=== PATIENT | female | born 1935 | race Caucasian/White ===

== ENCOUNTER 2016-09-02 08:16 | Inpatient (IN) ==
--- NOTE | 2016-09-02 08:24 | Emergency Department Note ---
Disposition Clinical Impression: Renal insufficiency Hypothermia Qualifiers: Encounter type: initial encounter Qualified Code(s): T68.XXXA - Hypothermia, initial encounter Dementia Qualifiers: Dementia type: unspecified type Dementia behavioral disturbance: without behavioral disturbance Qualified Code(s): F03.90 - Unspecified dementia without behavioral disturbance Disposition: Admitted As Inpatient Condition: Fair Time of Disposition: 10:37 General Adult HPI - General Stated complaint: FALL Time Seen by Provider: 09/02/16 08:17 Source: EMS Mode of arrival: EMS Limitations: altered mental status Nursing Notes Reviewed: Yes Vital Signs Reviewed: Yes - History of Present Illness HPI Narrative: Squad indicates that the patient was found on the front porch not clear she fell she is complaining of some low back pain. Patient according to the squad has had some increasing confusion. Niece states that this morning the patient could be found and others R blanket and pillow out on the front porch and he found her laying behind the swing. 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 Radiation: non-radiation Pain Severity: mild, moderate Quality: aching Consistency: constant Improves with: nothing Worsens with: movement Associated symptoms: Reports: denies other symptoms - Related Data Home Medications Medication Instructions Recorded Confirmed No Known Home Drugs 09/02/16 09/02/16 Allergies Allergy/AdvReac Type Severity Reaction Status Date / Time No Known Allergies Allergy Verified 09/02/16 08:21 Limitations: ROS unobtainable due to patients medical condition Physical Exam - General Limitations: altered mental status General appearance: alert, in no apparent distress - Head Head exam: atraumatic, normocephalic, normal inspection - Eye Eye exam: Present: normal appearance, PERRL, EOMI - ENT ENT exam: normal exam, normal oropharynx, mucous membranes moist - Neck Neck exam: Present: normal inspection, full ROM, trachea midline - Chest Chest inspection: Present: normal inspection, symmetric chest wall rise - Respiratory Respiratory exam: Present: normal lung sounds bilaterally - Cardiovascular Cardiovascular exam: Present: regular rate, normal rhythm, normal heart sounds - Abdominal Exam Abdominal exam: Present: soft, Non-Tender. Absent: tenderness, distention, guarding, rebound, rigidity - Extremities Exam Extremities exam: Present: normal inspection, full ROM. Absent: tenderness, pedal edema - Expanded Lower Extremity Exam Neurovascular/Tendon exam: Absent: motor deficit, sensory deficit, tendon deficit Gait: not tested/not observed - Back Exam Back exam: Present: normal inspection, full ROM. Absent: tenderness - Neurological Exam Neurological exam: Present: alert - Expanded Neurological Exam Patient oriented to: Absent: person, place, time Speech: Present: fluid speech Motor strength - LUE: 5/5 Motor strength - RUE: 5/5 Motor strength - LLE: 5/5 Motor strength - RLE: 5/5 - Psychiatric Psychiatric exam: Present: normal affect, normal mood - Skin Skin exam: Present: warm, dry, intact, normal color Course - Consultations Consultation #1: I discussed the case with , admit to ICU. Time: 10:31 Consultation #2: Discussed with Dr. Walsh, admit to ICU Time: 10:35 Consultation #3: Dr. Walsh discussed the case with the hospitalist after evaluating the patient and felt this patient could go to the floor not the ICU. I spoke to bed management to make those arrangements. Time: 11:47 Vital Signs Temperature 91.1 F L 09/02/16 08:17 Pulse Rate 97 09/02/16 08:17 Respiratory Rate 18 09/02/16 08:17 Blood Pressure 140/94 09/02/16 08:17 O2 Sat by Pulse Oximetry 98 09/02/16 08:17 Temperature 97.5 F L 09/02/16 11:42 Pulse Rate 110 09/02/16 11:42 Respiratory Rate 18 09/02/16 11:42 Blood Pressure 106/57 09/02/16 11:42 O2 Sat by Pulse Oximetry 98 09/02/16 11:42 Oxygen Delivery Oxygen Delivery Room Air Medical Decision Making - Lab Data Lab results reviewed: Yes I reviewed the patient's lab results. Result diagrams: 09/02/16 08:34 09/02/16 08:34 Lab Results 09/02/16 09/02/16 09/02/16 Range/Units 08:34 08:34 08:34 WBC (4.3-11.1) K/mcL RBC (3.82-4.97) M/mcL Hgb (11.5-15.4) g/dL Hct (35.3-44.9) % MCV (83.0-100.0) fL MCH (28.0-33.3) pg MCHC (31.6-35.5) g/dL RDW (11.5-14.5) % Plt Count (140-400) K/mcL MPV (9.4-12.4) fL Immature Gran % (0-4) % Seg Neutrophils % % Lymphocytes % % Monocytes % % Eosinophils % % Basophils % % Neutrophils # (1.6-8.9) K/mcL Lymphocytes # (0.6-4.6) K/mcL Monocytes # (0.0-1.3) K/mcL Eosinophils # (0.0-0.6) K/mcL Basophils # (0.0-0.2) K/mcL PT 15.0 H (9.4-12.1) Seconds INR 1.4 APTT 33.7 (26.0-36.0) Seconds Sodium (136-145) mEq/L Potassium (3.5-4.5) mEq/L Chloride (98-109) mEq/L Carbon Dioxide (19-29) mEq/L BUN (7-20) mg/dL Creatinine (0.57-1.11) mg/dL Est GFR ( Amer) (> 60) Est GFR (Non-Af Amer) (> 60) BUN/Creatinine Ratio (6-26) Glucose (70-99) mg/dL Calculated Osmolality (280-300) Calcium (8.6-10.8) mg/dL Creatine Kinase 540 H (29-168) Units/L Troponin I (0-0.03) ng/mL B-Natriuretic Peptide 99 (0-100) pg/mL Urine Color (Yellow) Urine Clarity (Clear) Urine pH (5.0-8.0) pH Units Ur Specific [place] (1.010-1.025) Urine Protein (Neg-Trace) mg/dL Urine Glucose (UA) (Normal) mg/dL Urine Ketones (Negative) mg/dL Urine Blood (Negative) Urine Nitrite (Negative) Urine Bilirubin (Negative) Urine Urobilinogen (Normal) mg/dL Ur Leukocyte Esterase (Negative) Urine Microscopic RBC (0-3) per hpf Urine Microscopic WBC (0-3) per hpf Ur Squamous Epith Cells (None-Few) per lpf Urine Bacteria (None-Few) per hpf Hyaline Casts (None-Few) per lpf Ur Culture Indicated? (NO) 03/19/17 03/19/17 03/19/17 Range/Units 08:34 08:34 08:34 WBC 15.8 H (4.3-11.1) K/mcL RBC 5.02 H (3.82-4.97) M/mcL Hgb 13.9 (11.5-15.4) g/dL Hct 44.2 (35.3-44.9) % MCV 88.0 (83.0-100.0) fL MCH 27.7 L (28.0-33.3) pg MCHC 31.4 L (31.6-35.5) g/dL RDW 13.1 (11.5-14.5) % Plt Count 216 (140-400) K/mcL MPV 10.5 (9.4-12.4) fL Immature Gran % 0.4 (0-4) % Seg Neutrophils % 88.6 % Lymphocytes % 4.1 % Monocytes % 6.5 % Eosinophils % 0.0 % Basophils % 0.4 % Neutrophils # 14.0 H (1.6-8.9) K/mcL Lymphocytes # 0.6 (0.6-4.6) K/mcL Monocytes # 1.0 (0.0-1.3) K/mcL Eosinophils # 0.0 (0.0-0.6) K/mcL Basophils # 0.1 (0.0-0.2) K/mcL PT (9.4-12.1) Seconds INR APTT (26.0-36.0) Seconds Sodium 137 (136-145) mEq/L Potassium 5.0 H (3.5-4.5) mEq/L Chloride 99 (98-109) mEq/L Carbon Dioxide 20 (19-29) mEq/L BUN 25 H (7-20) mg/dL Creatinine 1.21 H (0.57-1.11) mg/dL Est GFR ( Amer) 52 L (> 60) Est GFR (Non-Af Amer) 43 L (> 60) BUN/Creatinine Ratio 21 (6-26) Glucose 154 H (70-99) mg/dL Calculated Osmolality 291 (280-300) Calcium 9.9 (8.6-10.8) mg/dL Creatine Kinase (29-168) Units/L Troponin I 0.02 (0-0.03) ng/mL B-Natriuretic Peptide (0-100) pg/mL Urine Color (Yellow) Urine Clarity (Clear) Urine pH (5.0-8.0) pH Units Ur Specific [place] (1.010-1.025) Urine Protein (Neg-Trace) mg/dL Urine Glucose (UA) (Normal) mg/dL Urine Ketones (Negative) mg/dL Urine Blood (Negative) Urine Nitrite (Negative) Urine Bilirubin (Negative) Urine Urobilinogen (Normal) mg/dL Ur Leukocyte Esterase (Negative) Urine Microscopic RBC (0-3) per hpf Urine Microscopic WBC (0-3) per hpf Ur Squamous Epith Cells (None-Few) per lpf Urine Bacteria (None-Few) per hpf Hyaline Casts (None-Few) per lpf Ur Culture Indicated? (NO) 09/02/16 Range/Units 09:30 WBC (4.3-11.1) K/mcL RBC (3.82-4.97) M/mcL Hgb (11.5-15.4) g/dL Hct (35.3-44.9) % MCV (83.0-100.0) fL MCH (28.0-33.3) pg MCHC (31.6-35.5) g/dL RDW (11.5-14.5) % Plt Count (140-400) K/mcL MPV (9.4-12.4) fL Immature Gran % (0-4) % Seg Neutrophils % % Lymphocytes % % Monocytes % % Eosinophils % % Basophils % % Neutrophils # (1.6-8.9) K/mcL Lymphocytes # (0.6-4.6) K/mcL Monocytes # (0.0-1.3) K/mcL Eosinophils # (0.0-0.6) K/mcL Basophils # (0.0-0.2) K/mcL PT (9.4-12.1) Seconds INR APTT (26.0-36.0) Seconds Sodium (136-145) mEq/L Potassium (3.5-4.5) mEq/L Chloride (98-109) mEq/L Carbon Dioxide (19-29) mEq/L BUN (7-20) mg/dL Creatinine (0.57-1.11) mg/dL Est GFR ( Amer) (> 60) Est GFR (Non-Af Amer) (> 60) BUN/Creatinine Ratio (6-26) Glucose (70-99) mg/dL Calculated Osmolality (280-300) Calcium (8.6-10.8) mg/dL Creatine Kinase (29-168) Units/L Troponin I (0-0.03) ng/mL B-Natriuretic Peptide (0-100) pg/mL Urine Color Yellow (Yellow) Urine Clarity Clear (Clear) Urine pH 5.0 (5.0-8.0) pH Units Ur Specific [place] 1.016 (1.010-1.025) Urine Protein Negative (Neg-Trace) mg/dL Urine Glucose (UA) Normal (Normal) mg/dL Urine Ketones 15 H (Negative) mg/dL Urine Blood Small H (Negative) Urine Nitrite Negative (Negative) Urine Bilirubin Small H (Negative) Urine Urobilinogen Normal (Normal) mg/dL Ur Leukocyte Esterase Negative (Negative) Urine Microscopic RBC 0-3 (0-3) per hpf Urine Microscopic WBC 0-3 (0-3) per hpf Ur Squamous Epith Cells Moderate H (None-Few) per lpf Urine Bacteria None Seen (None-Few) per hpf Hyaline Casts None Seen (None-Few) per lpf Ur Culture Indicated? NO (NO) - Radiology Data Radiology results reviewed: Yes I reviewed the patient's radiology results. Chest X-Ray 09/02/16 08:18 IMPRESSION: Minimal atelectasis right lower lobe. D/ / Chase Ricardo MD / Chase Ricardo MD Interpreting Provider: Chase Ricardo MD Cervical Spine CT 09/02/16 08:19 IMPRESSION: Normal alignment with multilevel degenerative changes resulting in canal and foraminal stenosis. No acute fracture. D/ / Derrek May MD / Derrek May MD Interpreting Provider: Derrek May MD Head CT 09/02/16 08:19 IMPRESSION: 1. No acute intracranial process identified. 2. Diffuse cerebral volume loss and chronic small vessel ischemic changes. D/ / Jorge Luis Alonso MD / Jorge Luis Alonso MD Interpreting Provider: Jorge Luis Alonso MD Lumbar Spine CT 09/02/16 08:19 IMPRESSION: Multiple compression fractures at T7, T8, T9, T11, and L4. The appearance suggests remote compression fractures. There are however, no prior studies to confirm these are chronic. If the patient has pain referable to these locations, consider MRI to confirm the suspected chronic nature of these fractures. D/ / 09/02/2016 10:05:47 Jorge Luis Alonso MD / dilip Interpreting Provider: Jorge Luis Alonso MD Pelvis CT 09/02/16 08:19 IMPRESSION: 1. No acute osseous abnormality 2. Osteopenia 3. Moderate degenerative changes are present involving the bilateral hips, bilateral SI joints, and pubic symphysis D/ / Papo Sauer MD / Papo Sauer MD Interpreting Provider: Papo Sauer MD Thoracic Spine CT 09/02/16 08:19 IMPRESSION: Multiple compression fractures at T7, T8, T9, T11, and L4. The appearance suggests remote compression fractures. There are however, no prior studies to confirm these are chronic. If the patient has pain referable to these locations, consider MRI to confirm the suspected chronic nature of these fractures. D/ /02/2016 10:05:47 Jorge Luis Alonso MD / dilip Interpreting Provider: Jorge Luis Alonso MD - EKG Data EKG #1 EKG shows normal: sinus rhythm Rate: normal Rhythm: NSR [place]/QRS: LAHB/LAFB Interpretation: no acute changes Critical Care Time Critical Care Time: Yes Total Critical Care Time: 30 Attestation: The high probability of a clinically significant, sudden or life threatening deterioration of the [cardiac] system(s) required my full and direct attention, intervention and personal management. The aggregate critical care time was [30] minutes. This time is in addition to time spent performing reported procedures but includes the following: [x] Data Review and interpretation [x] Patient assessment and monitoring of vital signs [x] Documentation [x] Medication orders and management
[2016-09-02 08:42] LABS: Basophils # 0.1 K/mcL (0.0-0.2); Basophils % 0.4 %; Hematocrit 44.2 % (35.3-44.9); Hemoglobin 13.9 g/dL (11.5-15.4); Immature Granulocytes % 0.4 % (0-4); Lymphocytes # 0.6 K/mcL (0.6-4.6); Lymphocytes % 4.1 %; Mean Corpuscular HGB Conc 31.4 g/dL (31.6-35.5); Mean Corpuscular Hemoglobin 27.7 pg (28.0-33.3); Mean Platelet Volume 10.5 fL (9.4-12.4); Monocytes % 6.5 %; Platelet Count 216 K/mcL (140-400); Red Blood Count 5.02 M/mcL (3.82-4.97); Red Cell Distribution Width 13.1 % (11.5-14.5); Segmented Neutrophils % 88.6 %
[2016-09-02 08:50] LABS: INR 1.4
[2016-09-02 08:53] LABS: Activated Partial Thrombo Time 33.7 Seconds (26.0-36.0)
[2016-09-02 08:55] LABS: Calcium 9.9 mg/dL (8.6-10.8)
[2016-09-02] MEDS ORDERED: Albuterol 2.5 MG/3 ML NEBULIZER IH ONE (09:32)
[2016-09-02] MEDS ORDERED: *HR* Dextrose 50 % in Water (Syg) 50 ML SYRINGE IVP ONE (09:34)
[2016-09-02] MEDS ORDERED: Insulin Human Regular 10 UNIT in 0.9 % Sodium Chloride 10 ML IV ONE (09:34)
[2016-09-02 09:39] LABS: Bilirubin,Urine Small (Negative); Blood,Urine Small (Negative); Clarity,Urine Clear (Clear); Color,Urine Yellow (Yellow); Glucose,Urine (UA) Normal (Normal); Ketones,Urine 15 mg/dL (Negative); Leukocyte Esterase,Urine Negative (Negative); Nitrite,Urine Negative (Negative); Protein,Urine Negative (Neg-Trace); Specific Gravity,Urine 1.016 (1.010-1.025); Urobilinogen,Urine Normal (Normal)
[2016-09-02 09:41] LABS: Bacteria,Urine None Seen per hpf (None-Few); Hyaline Casts,Urine None Seen per lpf (None-Few); RBC,Urine 0-3 per hpf (0-3); Squamous Epithelial Cell,Urine Moderate per lpf (None-Few); WBC,Urine 0-3 per hpf (0-3)
[2016-09-02] MEDS ORDERED: Acetaminophen 325 MG TABLET PO PRN (12:34)
[2016-09-02] MEDS ORDERED: Naloxone 0.4 MG/ML INJ IVP PRN (12:34)
--- NOTE | 2016-09-02 14:12 | Internal Med History&Physical ---
Date of Encounter: 09/02/16 Time of Encounter: 13:50 Assessment and Plan (1) Hypothermia Current visit: Yes Status: Acute Patient presented with hypothermia with temperature of 91.1F. this is now improving. Will monitor heart rate with telemetry and also monitor electrolytes. Due to exposure. Will observe patient in the hospital. Monitor vital signs closely Qualifiers: Encounter type: initial encounter Qualified Code(s): T68.XXXA - Hypothermia , initial encounter (2) Fall Current visit: Yes Status: Acute Patient was found on the floor of the front porch. Likely after fall. Patient does not recollect the events prior to the fall. We will consult physical therapy for evaluation and also social media assistant to see if patient will need any help with discharge planning. Qualifiers: Encounter type: initial encounter Qualified Code(s): W19.XXXA - Unspecified fall, initial encounter (3) SIRS (systemic inflammatory response syndrome) Current visit: Yes Status: Acute Patient has tachycardia and leukocytosis. No source clicks of infection. Hold off on starting antibiotics for now. Will hydrate intravenously. (4) Renal insufficiency Current visit: Yes Status: Acute Acute kidney injury. Unknown baseline renal function. Likely from dehydration. Will hydrate and reassess. (5) Dementia Current visit: Yes Status: Chronic Patient appears to be having underlying dementia. At risk for delirium. We will monitor closely. park worker consult for discharge planning. Qualifiers: Dementia type: unspecified type Dementia behavioral disturbance: without behavioral disturbance Qualified Code(s): F03.90 - Unspecified dementia without behavioral disturbance Internal Medicine - H&P: HPI Chief complaint: Fall Admitted From: Emergency Dept Plans for Post Hospital Care: Transfer [facility] History of present illness: Ms. Stokes is a 81 year old female who was brought in by EMS after being found on the front porch by her family members. Patient appears to be having some underlying dementia and is unable to provide much history. History has been obtained through review of ED records. Patient however denies any pain. Denies any shortness of breath. No nausea or vomiting. In the ER, the patient was noted to be hypothermic. She has confusion on presentation but this has been improving throughout her ER stay. Presently she seems to recognize her surroundings but unable to relate events that occurred. She says she lives with her sister but then says that she only sees her every other week. Past Med Surg Social Fam HX - Past Medical History Medical history: dementia (possible) - Social History Smoking Status: Never smoker Smokeless Tobacco Status: No Alcohol use: none Drug use: none - Additional Family History Additional family history: Unable to review at this time given patient's dementia Internal Medicine - H&P: Meds No Known Home Drugs 09/02/16 [History] Allergies No Known Allergies Allergy (Verified 09/02/16 08:21) ROS unobtainable: due to mental status All Systems PM: A 10-system review of systems was performed and is negative for pertinent findings except as documented above in the HPI. Review of systems: Obtained but doubt accuracy given the patient's possible dementia. - Constitutional Constitutional: falls - EENT Eyes: no change in vision, no discharge, no pain, no photophobia Ears: no ear discharge, no ear pain, no tinnitus Nose, mouth and throat: no dysphagia, no nasal discharge, no neck pain, no sore throat - Cardiovascular Cardiovascular ROS IM: no chest pain, no diaphoresis, no dyspnea, no lightheadedness, no palpitations, no syncope - Respiratory Respiratory: no cough, no dyspnea, no wheezing, no excessive phlegm production - Gastrointestinal Gastrointestinal: no abdominal pain, no diarrhea, no hematemesis, no hematochezia, no melena, no nausea, no vomiting - Genitourinary Genitourinary: no change in urinary stream, no dysuria, no flank pain, no hematuria - Musculoskeletal Musculoskeletal ROS IM: no numbness, no tingling - Integumentary Integumentary IM: no rash, no unusual bruising - Neurological Neurological ROS: no confusion, no convulsions, no focal weakness, no numbness, no tingling, no tremor(s) - Hematologic/Lymphatic Hematologic/Lymphatic: no easy bruising - Constitutional Vitals: Temp Pulse Resp BP Pulse Ox 97.5 F L 118 18 112/59 97 09/02/16 13:03 09/02/16 13:03 09/02/16 13:03 09/02/16 13:03 09/02/16 13:15 General appearance: Present: cooperative, A&O X 1, disheveled, answers questions appropriately - Head Head exam: Present: atraumatic, normocephalic - Eye Eye exam: Present: EOMI, PERRL - ENT Additional comments: Poor dentition - Neck Neck exam general surgery: Present: supple, trachea midline. Absent: lymphadenopathy - Respiratory Respiratory exam: Present: CTAB. Absent: accessory muscle use, rales, rhonchi, wheezes - Cardiovascular Cardiovascular exam: Present: RRR, +S1, +S2, systolic murmur, tachycardia. Absent: diastolic murmur, gallop, rubs - GI/Abdominal GI/Abdominal exam: Present: normal bowel sounds, soft, no peritoneal signs. Absent: distended, tenderness - Extremities Exam Extremities exam: Present: warm, radial pulses palpable and symetrical. Absent : calf tenderness, cyanotic, pedal edema - Neurological Exam Neurological exam: Present: alert, CN II-XII intact, no focal deficits, strengths equal and symetr throughout. Absent: facial droop, speech deficit - Skin Skin exam: Present: dry, intact Internal Med - H&P Results - Labs CBC & Chem 7: 09/02/16 08:34 09/02/16 08:34 - EKG Data -: EKG Interpreted by Myself EKG shows normal: sinus rhythm Rate: tachycardia - Impressions Impressions Chest X-Ray 09/02/16 08:18 IMPRESSION: Minimal atelectasis right lower lobe. D/ / Chase Ricardo MD / Chase Ricardo MD Interpreting Provider: Chase Ricardo MD Cervical Spine CT 09/02/16 08:19 IMPRESSION: Normal alignment with multilevel degenerative changes resulting in canal and foraminal stenosis. No acute fracture. D/ / 09/02/2016 10:11:40 Derrek May MD / bcarter Interpreting Provider: Derrek May MD Head CT 09/02/16 08:19 IMPRESSION: 1. No acute intracranial process identified. 2. Diffuse cerebral volume loss and chronic small vessel ischemic changes. D/ / Jorge Luis Alonso MD / Jorge Luis Alonso MD Interpreting Provider: Jorge Luis Alonso MD Lumbar Spine CT 09/02/16 08:19 IMPRESSION: Multiple compression fractures at T7, T8, T9, T11, and L4. The appearance suggests remote compression fractures. There are however, no prior studies to confirm these are chronic. If the patient has pain referable to these locations, consider MRI to confirm the suspected chronic nature of these fractures. D/ / 09/02/2016 10:05:47 Jorge Luis Alonso MD / [employer] Interpreting Provider: Jorge Luis Alonso MD Pelvis CT 09/02/16 08:19 IMPRESSION: 1. No acute osseous abnormality. 2. Osteopenia. 3. Moderate degenerative changes are present involving the bilateral hips, bilateral SI joints, and pubic symphysis. D/ / 09/02/2016 10:14:15 Papo Sauer MD / dilip Interpreting Provider: Papo Sauer MD Thoracic Spine CT 09/02/16 08:19 IMPRESSION: Multiple compression fractures at T7, T8, T9, T11, and L4. The appearance suggests remote compression fractures. There are however, no prior studies to confirm these are chronic. If the patient has pain referable to these locations, consider MRI to confirm the suspected chronic nature of these fractures. D/ / 09/02/2016 10:05:47 Jorge Luis Alonso MD / [employer] Interpreting Provider: Jorge Luis Alonso MD - Attending Attestation This document has been at least partially created by [employer] recognition technology by Dr. Hickey. Errors in grammar, wording or other phrases may exist. If errors are found after the documentation is signed, they will be addressed individually in the addendum section of this document when appropriate.
[2016-09-02 14:28] LABS: BUN/Creatinine Ratio 22 (6-26); Blood Urea Nitrogen 23 mg/dL (7-20); Calcium 9.1 mg/dL (8.6-10.8); Carbon Dioxide 18 mEq/L (19-29); Chloride 106 mEq/L (98-109); Glucose 57 mg/dL (70-99); Magnesium 1.7 mg/dL (1.6-2.6); Osmolality,Calculated 289 (280-300); Phosphorous 2.1 mg/dL (2.3-4.7); Potassium 4.1 mEq/L (3.5-4.5); Sodium 139 mEq/L (136-145); eGFR For African Americans > 60 (> 60); eGFR For Non-African Americans 51 (> 60)
[2016-09-02] MEDS: 0.9 % Sodium Chloride 1,000 ML IVC SCH (14:56)
[2016-09-03] MEDS: 0.9 % Sodium Chloride 1,000 ML IVC SCH (02:10)
[2016-09-03 04:54] LABS: Basophils % 0.4 %; Eosinophils % 0.1 %; Hematocrit 35.9 % (35.3-44.9); Immature Granulocytes % 0.5 % (0-4); Lymphocytes # 1.3 K/mcL (0.6-4.6); Lymphocytes % 12.3 %; Mean Corpuscular HGB Conc 30.9 g/dL (31.6-35.5); Mean Corpuscular Hemoglobin 27.1 pg (28.0-33.3); Mean Corpuscular Volume 87.6 fL (83.0-100.0); Mean Platelet Volume 10.3 fL (9.4-12.4); Monocytes % 9.4 %; Platelet Count 168 K/mcL (140-400); Red Cell Distribution Width 13.2 % (11.5-14.5); Segmented Neutrophils % 77.3 %
[2016-09-03 05:28] LABS: Hemoglobin 11.1 g/dL (11.5-15.4)
--- NOTE | 2016-09-03 06:26 | Electrocardiograph Report ---
[place] Member Desk [facility] Test Date: 2016-09-02 Pat Name: Namita Stokes Department: [id number] Room: 2A12 Gender: F Fire Support Man: : 1935 Requested By: Franklin Weaver Order Number: [id number] Reading MD: Nam Victor DO Measurements Intervals [place] Rate: 93 P: 89 MO: 192 QRS: -78 QRSD: 105 T: 88 QT: 378 QTc: 429 Interpretive Statements SINUS RHYTHM LEFT ANTERIOR FASCICULAR BLOCK POSSIBLE LATERAL MYOCARDIAL INFARCTION, OF INDETERMINATE AGE Electronically Signed On 09-03-2016 6:24:34 EDT by Nam Victor DO
--- NOTE | 2016-09-03 08:59 | Internal Med Progress Note ---
<Sara Mcnulty - Last Filed: 09/03/16 08:56> Date of Encounter: 09/03/16 Time of Encounter: 08:57 - Assessment and plan (1) Fall Current Visit: Yes Status: Acute Assessment and plan: Patient was found down outside at home, unclear etiology of fall. CT significant for throacic compression fractures which appear to be old, patient has no pain on palpation of thoracic spine. Given hypothermia, questionable fall and condition of patient, social work has been consulted Suspect that patient may need placement. Qualifiers: Encounter type: subsequent encounter Qualified Code(s): W19.XXXD - Unspecified fall, subsequent encounter (2) Dementia Current Visit: Yes Status: Chronic Assessment and plan: Chronic Patient only oriented to self. Per nursing notes, significant concerns for safety at home, possible need for APS involvement Social work consulted, will follow. Patient may need placement, is unsafe to discharge at this time. Qualifiers: Dementia type: unspecified type Dementia behavioral disturbance: without behavioral disturbance Qualified Code(s): F03.90 - Unspecified dementia without behavioral disturbance (3) Hypothermia Current Visit: Yes Status: Resolved Assessment and plan: Resolved. Patient was found outside for unknown period of time,w as hypothermic on arrival. Patient had bear hugger, warmed sufficiently. Currently not needing bear hugger. Patient is maintaining temperature and is normothermic. Given social concerns, social work consulted as previously mentioned. Qualifiers: Encounter type: subsequent encounter Qualified Code(s): T68.XXXD - Hypothermia, subsequent encounter (4) SIRS (systemic inflammatory response syndrome) Current Visit: Yes Status: Resolved Assessment and plan: Resolved. Patient was hypothermic and had leukocytosis on arrival. Urine negative for any possible source of infection, chest x-ray negative. No antibiotics given. WBC normalized to 10.3 after administration of fluids, suspect initial elevation due to volume contraction secondary to dehydration. - Subjective Interval history: Patient seen and examined. Per review of nursing notes, there is significant social concerns due to condition of patient when she arrived on floor, fact patient was hypothermic and due to inappropriate answers from sister who lives with patient at home. Plan is to consult social work, nursing concern for possible APS involvement. Patient herself has no acute complaints this morning. States that the TV remote is her sisters and that the athletic monitor box is hers. Patient states that she does not eat breakfast and only has milk, breakfast tray in room is uneaten. - Constitutional Vitals: Temp Pulse Resp BP Pulse Ox 97.6 F 99 16 132/63 97 09/03/16 08:46 09/03/16 08:46 09/03/16 08:46 09/03/16 08:46 09/03/16 08:46 General appearance: Present: cooperative, A&O X 1 (oriented to self only ), no acute distress - Head Head exam: Present: atraumatic - Eye Eye exam: Present: normal appearance - ENT ENT exam: Present: mucous membranes moist Additional comments: tooth hanging from mouth - Respiratory Respiratory exam: Present: CTAB. Absent: rales, rhonchi, wheezes - Cardiovascular Cardiovascular exam: Present: RRR, +S1, +S2. Absent: clicks, diastolic murmur, gallop, rubs, systolic murmur - GI/Abdominal GI/Abdominal exam: Present: normal bowel sounds, soft, no peritoneal signs. Absent: distended, guarding, rebound, rigid, tenderness - Extremities Exam Extremities exam: Present: normal capillary refill. Absent: pedal edema Additional comments: chronic rubor bilateral lower extremities Internal Medicine: Result - Labs CBC & Chem 7: 09/03/16 04:29 09/02/16 13:59 Labs: Short CBC 09/03/16 Range/Units 04:29 WBC 10.3 (4.3-11.1) K/mcL Hgb 11.1 L D (11.5-15.4) g/dL Hct 35.9 (35.3-44.9) % Plt Count 168 (140-400) K/mcL Neutrophils # 8.0 (1.6-8.9) K/mcL BMP 09/02/16 13:59 Sodium 139 Potassium 4.1 Chloride 106 Carbon Dioxide 18 L BUN 23 H Creatinine 1.04 Glucose 57 L Calcium 9.1 - ABG Interpretation ABG results: PT/INR, D-dimer PT 15.0 Seconds (9.4-12.1) H 09/02/16 08:34 Consult Discharge Plan - Plan Referrals: NO,PCP [Primary Care Provider] - <Abhishek Hauser - Last Filed: 09/03/16 16:02> - Assessment and plan (1) Rhabdomyolysis Current Visit: Yes Status: Acute Assessment and plan: Very mild situation - responding to fluids. Recheck CPK. Qualifiers: Rhabdomyolysis type: non-traumatic Qualified Code(s): M62.82 - Rhabdomyolysis (2) Hypothermia Current Visit: Yes Status: Resolved Qualifiers: Encounter type: subsequent encounter Qualified Code(s): T68.XXXD - Hypothermia, subsequent encounter (3) Renal insufficiency Current Visit: Yes Status: Acute (4) Fall Current Visit: Yes Status: Acute Qualifiers: Encounter type: subsequent encounter Qualified Code(s): W19.XXXD - Unspecified fall, subsequent encounter (5) Dementia Current Visit: Yes Status: Chronic Qualifiers: Dementia type: unspecified type Dementia behavioral disturbance: without behavioral disturbance Qualified Code(s): F03.90 - Unspecified dementia without behavioral disturbance - Constitutional Vitals: Temp Pulse Resp BP Pulse Ox 97.6 F 102 16 129/69 96 09/03/16 11:00 09/03/16 11:00 09/03/16 11:00 09/03/16 11:00 09/03/16 11:00 Internal Medicine: Result - Labs CBC & Chem 7: 09/03/16 04:29 09/02/16 13:59 Labs: Short CBC 09/03/16 Range/Units 04:29 WBC 10.3 (4.3-11.1) K/mcL Hgb 11.1 L D (11.5-15.4) g/dL Hct 35.9 (35.3-44.9) % Plt Count 168 (140-400) K/mcL Neutrophils # 8.0 (1.6-8.9) K/mcL - ABG Interpretation ABG results: PT/INR, D-dimer PT 15.0 Seconds (9.4-12.1) H 09/02/16 08:34 - Attending Attestation I examined this patient and my medical decision-making was reviewed with the Resident Physician on 09/03/16. I agree with the documented findings, disposition and treatment plan as described except to the extent set forth below. Ms. Stokes is currently in observation for hypothermia and fall. She is moderate risk due to potential for worsening renal and neurologic status. Ms. Stokes denies complaints. She is oriented only to person. Says her sister will be here to get her today if she is going home. Denies pain. No SOB. Not hungry. Exam Alert. Comfortable Heart reg Lungs no wheeze Legs with chronic venous stasis changes. Abd soft I/P 1. Hypothermia - resolved 2. Mild rhabdomyolysis - initial CPK 540 (today's pending)with mild DELIA. IV fluids have been given 3. Dehydration - IV fluids. Further diagnoses and plan as above. Social work consulted for assistance. Pt lives with her sister and not sure of safety of living environment.
[2016-09-04 09:21] LABS: Creatine Kinase 788 Units/L (29-168)
--- NOTE | 2016-09-04 10:06 | Internal Med Progress Note ---
<Sara Mcnulty - Last Filed: 09/04/16 10:17> Date of Encounter: 09/04/16 Time of Encounter: 09:41 - Assessment and plan (1) Fall Current Visit: Yes Status: Acute Assessment and plan: Patient was found down outside at home, unclear if fell or if fell asleep outside. CT significant for thoracic compression fractures which appear to be old, patient has no pain on palpation of thoracic spine. Social work consult, APS consulted due to concerns over condition and circumstances of how patient was found. Social work has also made attempt to contact sister to find other family members who may be able to help in decision making. PT and OT consulted, do not feel that patient is a candidate for skilled services due to inability to follow one step commands. Both feel that patient would benefit from placement in extended care facility with 24 hour supervision for her safety. Qualifiers: Encounter type: subsequent encounter Qualified Code(s): W19.XXXD - Unspecified fall, subsequent encounter (2) Dementia Current Visit: Yes Status: Chronic Assessment and plan: Chronic Patient only oriented to self. Social work consulted, has consulted APS as previously mentioned. Has attempted to contact sister for additional relatives for decision making as previously mentioned. As previously mentioned, PT and OT recommend [facility] ECF placement with 24 hour supervision for patient safety, do not believe patient would be a candidate for skilled rehab due to inability to follow one step commands. Will continue to follow. Qualifiers: Dementia type: unspecified type Dementia behavioral disturbance: without behavioral disturbance Qualified Code(s): F03.90 - Unspecified dementia without behavioral disturbance (3) Rhabdomyolysis Current Visit: Yes Status: Acute Assessment and plan: Mild rhabodomyolysis, likely secondary from being immobile for unknown amount of time prior to arrival. CK on admission 540, increased to 788 today. Will continue to monitor. Qualifiers: Rhabdomyolysis type: non-traumatic Qualified Code(s): M62.82 - Rhabdomyolysis - Subjective Interval history: Patient seen and examined. Due to patient's mental status, information for note was gathered from chart review. Per review of social work note, the manager social media did contact APS to file a report concerning patient's status and concerns over her well being. Social work also attempted to contact sister to obtain any information for additional family or relatives in the area. Per review of PT and OT notes, they do not feel that the patient qualifies for skilled services due to her inability to follow basic one step commands. Notes are concerned for patient safety and are recommending placement in a longterm care facility which has 24 hour supervision. Per nursing notes, patient had increasing confusion overnight and staff was unable to reorient her. Patient herself has no complaints this morning. - Constitutional Vitals: Temp Pulse Resp BP Pulse Ox 98.6 F 107 24 129/65 95 09/04/16 06:45 09/04/16 06:45 09/04/16 06:45 09/04/16 06:45 09/04/16 06:45 General appearance: Present: cooperative, A&O X 1 (oriented to self only ), no acute distress - Head Head exam: Present: atraumatic - ENT ENT exam: Present: mucous membranes moist, normal external ear exam Additional comments: Tooth protruding from left side of mouth - Respiratory Respiratory exam: Present: CTAB. Absent: rales, rhonchi, wheezes - Cardiovascular Cardiovascular exam: Present: +S1, +S2, tachycardia. Absent: clicks, diastolic murmur, rubs, systolic murmur - GI/Abdominal GI/Abdominal exam: Present: normal bowel sounds, soft. Absent: distended, guarding, rebound, tenderness - Extremities Exam Extremities exam: Present: normal capillary refill, warm. Absent: pedal edema Internal Medicine: Result - Labs CBC & Chem 7: 09/03/16 04:29 09/02/16 13:59 - ABG Interpretation ABG results: PT/INR, D-dimer PT 15.0 Seconds (9.4-12.1) H 09/02/16 08:34 Consult Discharge Plan - Plan Referrals: NO,PCP [Primary Care Provider] - <Abhishek Hauser - Last Filed: 09/04/16 16:38> - Assessment and plan (1) Rhabdomyolysis Current Visit: Yes Status: Acute Qualifiers: Rhabdomyolysis type: non-traumatic Qualified Code(s): M62.82 - Rhabdomyolysis (2) Hypothermia Current Visit: Yes Status: Resolved Qualifiers: Encounter type: subsequent encounter Qualified Code(s): T68.XXXD - Hypothermia, subsequent encounter (3) Fall Current Visit: Yes Status: Acute Qualifiers: Encounter type: subsequent encounter Qualified Code(s): W19.XXXD - Unspecified fall, subsequent encounter (4) Dementia Current Visit: Yes Status: Chronic Qualifiers: Dementia type: unspecified type Dementia behavioral disturbance: without behavioral disturbance Qualified Code(s): F03.90 - Unspecified dementia without behavioral disturbance (5) Renal insufficiency Current Visit: Yes Status: Resolved - Constitutional Vitals: Temp Pulse Resp BP Pulse Ox 98.8 F 113 20 134/73 95 09/04/16 16:07 09/04/16 16:07 09/04/16 16:07 09/04/16 16:07 09/04/16 16:07 Internal Medicine: Result - Labs CBC & Chem 7: 09/03/16 04:29 09/04/16 08:51 Labs: BMP 09/04/16 08:51 Sodium 138 Potassium 3.1 L D Chloride 107 Carbon Dioxide 20 BUN 10 D Creatinine 0.78 Glucose 88 Calcium 8.6 - ABG Interpretation ABG results: PT/INR, D-dimer PT 15.0 Seconds (9.4-12.1) H 09/02/16 08:34 - Attending Attestation I examined this patient and my medical decision-making was reviewed with the Resident Physician on 09/04/16. I agree with the documented findings, disposition and treatment plan as described except to the extent set forth below. Ms. Stokes is currently in observation due to acute rhabdomyolysis with DELIA. Ms. Stokes denies pain at this time. She says she is not hungry. Fluids changed to 1/2 NS with bicarb. No CP or SOB. Exam Alert. Comfortable Heart reg No wheeze Chronic stasis changes both legs I/P 1. Mild acute rhabdo - IV fluids given. Bicarb started. 2. Dementia Further diagnoses and plan as above. Working on social service issues - discharge planning.
[2016-09-04] MEDS ORDERED: Sodium Bicarbonate 50 MEQ in 0.45 % Sodium Chloride 1,000 ML IVC SCH (11:00)
[2016-09-04 11:12] LABS: BUN/Creatinine Ratio 13 (6-26); Calcium 8.6 mg/dL (8.6-10.8); Carbon Dioxide 20 mEq/L (19-29); Chloride 107 mEq/L (98-109); Glucose 88 mg/dL (70-99); Osmolality,Calculated 284 (280-300); Sodium 138 mEq/L (136-145); eGFR For African Americans > 60 (> 60); eGFR For Non-African Americans > 60 (> 60)
[2016-09-04 11:30] LABS: Blood Urea Nitrogen 10 mg/dL (7-20); Potassium 3.1 mEq/L (3.5-4.5)
--- NOTE | 2016-09-05 09:59 | Internal Med Progress Note ---
<Sara Mcnulty - Last Filed: 09/05/16 09:48> Date of Encounter: 09/05/16 Time of Encounter: 09:48 - Assessment and plan (1) Fall Current Visit: Yes Status: Acute Assessment and plan: Patient was found down outside at home, unclear if fell or if fell asleep outside. CT significant for thoracic compression fractures which appear to be old, patient has no pain on palpation of thoracic spine. Social work consult, APS report filed. PT and OT evaluation with recommendation of placement in extended care facility , do not believe patient woudl benefit from skilled placement as she is unable to follow one step commands. Due to pending APS investigation and determination of safe discharge, patient will remain in hospital until safe discharge plan and place can be determined. Qualifiers: Encounter type: subsequent encounter Qualified Code(s): W19.XXXD - Unspecified fall, subsequent encounter (2) Dementia Current Visit: Yes Status: Chronic Assessment and plan: Chronic Patient only oriented to self. Social work consulted, APS report filed. Sister and niece present yesterday, niece believes that sister is no longer able to safely care f or patieint at home. Niece is willing to be guardian ut does not have funds available to pursue guardianship. As previously mentioned, PT and OT recommend group home ECF placement with 24 hour supervision for patient safety, do not believe patient would be a candidate for skilled rehab due to inability to follow one step commands. Patient will remain in hospital until APS investigation complete and determination of safe discharge plan for patient can be determined. Qualifiers: Dementia type: unspecified type Dementia behavioral disturbance: without behavioral disturbance Qualified Code(s): F03.90 - Unspecified dementia without behavioral disturbance (3) Rhabdomyolysis Current Visit: Yes Status: Acute Assessment and plan: Mild rhabodomyolysis, likely secondary from being immobile for unknown amount of time prior to arrival. CK on admission 540, increased to 788. Patient received normal saline with amp bicarb yesterday. Qualifiers: Rhabdomyolysis type: non-traumatic Qualified Code(s): M62.82 - Rhabdomyolysis - Subjective Interval history: Patient seen and examined. Due to patient's mental status, information for note was gathered from chart review. Per review of social work note, the nursing home social worker did file an APS report. Niece was present yesterday in room with sister, niece would be willing to be guardian but may not have funds to do so. Previous evaluation by PT and OT with recommendation for placement in facility with 24 hour supervision, as they feel patient would not be a skilled rehab candidate as she is unable to follow one step commands. Patient again had breakfast tray in room which was uneaten. Patient states that she only eats one large meal per day at supper. Chart review indicates patient only ate 5% of her lunch yesterday. Patient herself has no complaints this morning. - Constitutional Vitals: Temp Pulse Resp BP Pulse Ox 98.8 F 110 20 139/69 95 09/05/16 06:59 09/05/16 06:59 09/05/16 06:59 09/05/16 06:59 09/05/16 06:59 General appearance: Present: cooperative, A&O X 1 (oriented to self only ), no acute distress - Head Head exam: Present: atraumatic, normocephalic - Eye Eye exam: Present: normal appearance - ENT ENT exam: Present: mucous membranes moist, normal external ear exam Additional comments: tooth protruding from mouth left of midline - Neck Neck exam general surgery: Present: supple, trachea midline - Respiratory Respiratory exam: Present: CTAB. Absent: rales, rhonchi, stridor, wheezes - Cardiovascular Cardiovascular exam: Present: +S1, +S2, tachycardia. Absent: clicks, diastolic murmur, gallop, rubs, systolic murmur - GI/Abdominal GI/Abdominal exam: Present: normal bowel sounds, soft. Absent: distended, guarding, rebound, rigid Internal Medicine: Result - Labs CBC & Chem 7: 09/03/16 04:29 09/04/16 08:51 - ABG Interpretation ABG results: PT/INR, D-dimer PT 15.0 Seconds (9.4-12.1) H 09/02/16 08:34 Consult Discharge Plan - Plan Referrals: NO,PCP [Primary Care Provider] - (patient will go likely to ecf) <Abhishek Hauser - Last Filed: 09/05/16 16:38> - Assessment and plan (1) Rhabdomyolysis Current Visit: Yes Status: Acute Qualifiers: Rhabdomyolysis type: non-traumatic Qualified Code(s): M62.82 - Rhabdomyolysis (2) Hypothermia Current Visit: Yes Status: Resolved Qualifiers: Encounter type: subsequent encounter Qualified Code(s): T68.XXXD - Hypothermia, subsequent encounter (3) Fall Current Visit: Yes Status: Acute Qualifiers: Encounter type: subsequent encounter Qualified Code(s): W19.XXXD - Unspecified fall, subsequent encounter (4) Dementia Current Visit: Yes Status: Chronic Qualifiers: Dementia type: unspecified type Dementia behavioral disturbance: without behavioral disturbance Qualified Code(s): F03.90 - Unspecified dementia without behavioral disturbance (5) Renal insufficiency Current Visit: Yes Status: Resolved (6) Hypokalemia Current Visit: Yes Status: Acute Assessment and plan: Recheck tomorrow and replace. - Constitutional Vitals: Temp Pulse Resp BP Pulse Ox 97.4 F L 107 18 135/79 95 09/05/16 15:16 09/05/16 15:16 09/05/16 15:16 09/05/16 15:16 09/05/16 15:16 Internal Medicine: Result - Labs CBC & Chem 7: 09/03/16 04:29 09/04/16 08:51 - ABG Interpretation ABG results: PT/INR, D-dimer PT 15.0 Seconds (9.4-12.1) H 09/02/16 08:34 - Attending Attestation I examined this patient and my medical decision-making was reviewed with the Resident Physician on 09/05/16. I agree with the documented findings, disposition and treatment plan as described except to the extent set forth below. Ms. Stokes is currently in observation for acute mild rhabdomyolysis due to fall. She is moderate risk due to potential for worsening renal neurologic status. Ms. Stokes says she is going home. Denies pain. No acute issues overnight. Working on d/c planning. APS involved. Exam Alert. Comfortable but restless and trying to remove catheter. Heart reg with S4 Lungs no wheeze Abd soft I/P 1. Mild acute rhabdo - recheck labs tomorrow. Has been receiving bicarb 2. Dementia 3. D/C planning - APS involved. Further diagnoses and plan as above.
[2016-09-06 07:23] LABS: Hematocrit 38.7 % (35.3-44.9); Hemoglobin 12.4 g/dL (11.5-15.4); Mean Corpuscular Hemoglobin 27.1 pg (28.0-33.3); Mean Corpuscular Volume 84.5 fL (83.0-100.0); Platelet Count 194 K/mcL (140-400); Red Blood Count 4.58 M/mcL (3.82-4.97); Red Cell Distribution Width 13.2 % (11.5-14.5)
[2016-09-06 07:24] LABS: Alanine Aminotransferase 24 Units/L (0-55); Albumin 2.6 g/dL (3.5-5.0); Albumin/Globulin Ratio 0.8 (1.1-2.2); Alkaline Phosphatase 56 Units/L (38-126); Aspartate Amino Transferase 34 Units/L (5-34); BUN/Creatinine Ratio 12 (6-26); Bilirubin,Total 0.9 mg/dL (0.2-1.2); Blood Urea Nitrogen 9 mg/dL (7-20); Calcium 8.4 mg/dL (8.6-10.8); Carbon Dioxide 20 mEq/L (19-29); Chloride 104 mEq/L (98-109); Creatine Kinase 387 Units/L (29-168); Globulin 3.4 g/dL (2.4-3.5); Glucose 94 mg/dL (70-99); Magnesium 1.5 mg/dL (1.6-2.6); Osmolality,Calculated 284 (280-300); Potassium 3.5 mEq/L (3.5-4.5); Sodium 138 mEq/L (136-145); eGFR For African Americans > 60 (> 60); eGFR For Non-African Americans > 60 (> 60)
--- NOTE | 2016-09-06 09:38 | Internal Med Progress Note ---
<Sara Mcnulty - Last Filed: 09/06/16 09:36> Date of Encounter: 09/06/16 Time of Encounter: 09:36 - Assessment and plan (1) Fall Current Visit: Yes Status: Acute Assessment and plan: Patient was found down outside at home, unclear if fell or if fell asleep outside. CT significant for thoracic compression fractures which appear to be old, patient has no pain on palpation of thoracic spine. Social work consult, APS report filed. Plan to outfit doors of home with alarms to enable patient to return to home safely. Niece given Medicaid application for patient to enable her to access more services. PT and OT evaluation with recommendation of placement in extended care facility , do not believe patient would benefit from skilled placement as she is unable to follow one step commands. Due to APS involvement and plans for outfitting doors with alarms, patient will remain hospitalized until she may safely return home. Qualifiers: Encounter type: subsequent encounter Qualified Code(s): W19.XXXD - Unspecified fall, subsequent encounter (2) Dementia Current Visit: Yes Status: Chronic Assessment and plan: Chronic Patient only oriented to self. Social work consulted, APS investigation initiated. APS planning to help outfit home with door alarms to enable patient to safely return to home. Niece also given Medicaid application to enable patient to access more services. As previously mentioned, PT and OT recommend [facility] placement with 24 hour supervision for patient safety, do not believe patient would be a candidate for skilled rehab due to inability to follow one step commands. Patient will remain in hospital until it is determined by APS that she can safely return home. Qualifiers: Dementia type: unspecified type Dementia behavioral disturbance: without behavioral disturbance Qualified Code(s): F03.90 - Unspecified dementia without behavioral disturbance (3) Rhabdomyolysis Current Visit: Yes Status: Acute Assessment and plan: Mild rhabodomyolysis, likely secondary from being immobile for unknown amount of time prior to arrival. CK on admission 540, increased to 788. Patient has received bicarb during this hospital stay. Qualifiers: Rhabdomyolysis type: non-traumatic Qualified Code(s): M62.82 - Rhabdomyolysis - Subjective Interval history: Patient seen and examined. Due to patient's mental status, information for note was gathered from chart review. Per review of social work note, the social media director did file an APS report, see social work note for further details. Per review of social work note, APS is planning on assisting sister to obtain door alarms for patient in home so that sister is aware when patient goes outside. ALso worked with niece to obtain Medicaid for patient and was given forms to enable patient to qualify for PASSPORT services. Previous evaluation by PT and OT with recommendation for placement in facility with 24 hour supervision, as they feel patient would not be a skilled rehab candidate as she is unable to follow one step commands. Patient has numerous ensures on bedside tray which are unopened. Calorie count on door as of today. Per review, patient has had very little intake since arrival. Patient herself has no complaints this morning. - Constitutional Vitals: Temp Pulse Resp BP Pulse Ox 99.3 F 103 16 145/73 96 09/06/16 06:53 09/06/16 06:53 09/06/16 06:53 09/06/16 06:53 09/06/16 06:53 General appearance: Present: cooperative, A&O X 1 (oriented to self only ), no acute distress - Head Head exam: Present: atraumatic, normocephalic - Eye Eye exam: Present: normal appearance - ENT ENT exam: Present: mucous membranes moist, normal external ear exam Additional comments: tooth protruding form left side of mouth just lateral of midline - Neck Neck exam general surgery: Present: supple, trachea midline - Respiratory Respiratory exam: Present: CTAB. Absent: rales, rhonchi, stridor, wheezes - Cardiovascular Cardiovascular exam: Present: RRR, +S1, +S2. Absent: clicks, diastolic murmur, gallop, rubs, systolic murmur - GI/Abdominal GI/Abdominal exam: Present: normal bowel sounds, soft. Absent: distended, guarding, rebound - Extremities Exam Extremities exam: Present: normal capillary refill. Absent: pedal edema Internal Medicine: Result - Labs CBC & Chem 7: 09/06/16 06:48 09/06/16 06:48 Labs: Short CBC 09/06/16 Range/Units 06:48 WBC 7.8 (4.3-11.1) K/mcL Hgb 12.4 (11.5-15.4) g/dL Hct 38.7 (35.3-44.9) % Plt Count 194 (140-400) K/mcL BMP 09/06/16 06:48 Sodium 138 Potassium 3.5 Chloride 104 Carbon Dioxide 20 BUN 9 Creatinine 0.75 Glucose 94 Calcium 8.4 L Liver Function 09/06/16 Range/Units 06:48 Total Bilirubin 0.9 (0.2-1.2) mg/dL AST 34 (5-34) Units/L ALT 24 (0-55) Units/L Alkaline Phosphatase 56 (38-126) Units/L Albumin 2.6 L (3.5-5.0) g/dL - ABG Interpretation ABG results: PT/INR, D-dimer PT 15.0 Seconds (9.4-12.1) H 09/02/16 08:34 Consult Discharge Plan - Plan Referrals: NO,PCP [Primary Care Provider] - (patient will go likely to ecf) <Abhishek Hauser - Last Filed: 09/06/16 12:51> - Assessment and plan (1) Hypovolemia dehydration Current Visit: Yes Status: Acute Assessment and plan: Restart IV fluids. (2) Regular sinus tachycardia Current Visit: Yes Status: Acute Assessment and plan: Due to volume depletion (3) Rhabdomyolysis Current Visit: Yes Status: Acute Qualifiers: Rhabdomyolysis type: non-traumatic Qualified Code(s): M62.82 - Rhabdomyolysis (4) Fall Current Visit: Yes Status: Acute Qualifiers: Encounter type: subsequent encounter Qualified Code(s): W19.XXXD - Unspecified fall, subsequent encounter (5) Dementia Current Visit: Yes Status: Chronic Qualifiers: Dementia type: unspecified type Dementia behavioral disturbance: without behavioral disturbance Qualified Code(s): F03.90 - Unspecified dementia without behavioral disturbance (6) Hypokalemia Current Visit: Yes Status: Acute - Constitutional Vitals: Temp Pulse Resp BP Pulse Ox 98.5 F 113 16 128/75 96 09/06/16 11:10 09/06/16 11:10 09/06/16 11:10 09/06/16 11:10 09/06/16 11:10 Internal Medicine: Result - Labs CBC & Chem 7: 09/06/16 06:48 09/06/16 06:48 Labs: Short CBC 09/06/16 Range/Units 06:48 WBC 7.8 (4.3-11.1) K/mcL Hgb 12.4 (11.5-15.4) g/dL Hct 38.7 (35.3-44.9) % Plt Count 194 (140-400) K/mcL BMP 09/06/16 06:48 Sodium 138 Potassium 3.5 Chloride 104 Carbon Dioxide 20 BUN 9 Creatinine 0.75 Glucose 94 Calcium 8.4 L Liver Function 09/06/16 Range/Units 06:48 Total Bilirubin 0.9 (0.2-1.2) mg/dL AST 34 (5-34) Units/L ALT 24 (0-55) Units/L Alkaline Phosphatase 56 (38-126) Units/L Albumin 2.6 L (3.5-5.0) g/dL - ABG Interpretation ABG results: PT/INR, D-dimer PT 15.0 Seconds (9.4-12.1) H 09/02/16 08:34 - Attending Attestation I examined this patient and my medical decision-making was reviewed with the Resident Physician on 09/06/16. I agree with the documented findings, disposition and treatment plan as described except to the extent set forth below. Ms. Stokes is currently admitted for mild acute rhabdomyolysis after a fall. She is moderate to high risk due to potential for worsening renal status. Ms. Stokes has not been eating. She has been tachycardic at rest. Denies pain. Says she is not hungry. No fever or chills. Denies abd pain or dyspnea. Exam Alert. Comfortable Heart tachy and regular at rest - sinus tach on monitor Lungs clear Abd soft I/P 1. Dehydration - restart IV fluids. She is really not taking much PO (and doesn't appear to at home either). 2. Mild acute rhabdo 3. Remove colon Further diagnoses and plan as above.
[2016-09-06] MEDS ORDERED: Magnesium Sulfate 2 GM in D5% in Water 100 ML IVPB ONE (10:39)
[2016-09-06] MEDS ORDERED: 0.9 % Sodium Chloride 1,000 ML ONE (10:53)
[2016-09-06] MEDS: 0.9 % Sodium Chloride 1,000 ML IVC SCH ×2 (11:01→22:40)
[2016-09-07] MEDS: *HR* Enoxaparin 40 MG/0.4 ML SYRINGE SQ SCH (04:57)
[2016-09-07 07:00] LABS: BUN/Creatinine Ratio 13 (6-26); Blood Urea Nitrogen 9 mg/dL (7-20); Calcium 8.3 mg/dL (8.6-10.8); Carbon Dioxide 18 mEq/L (19-29); Chloride 107 mEq/L (98-109); Creatine Kinase 240 Units/L (29-168); Glucose 87 mg/dL (70-99); Magnesium 1.8 mg/dL (1.6-2.6); Osmolality,Calculated 286 (280-300); Potassium 3.4 mEq/L (3.5-4.5); Sodium 139 mEq/L (136-145); eGFR For African Americans > 60 (> 60); eGFR For Non-African Americans > 60 (> 60)
--- NOTE | 2016-09-07 10:19 | Internal Med Progress Note ---
<Sara Mcnulty - Last Filed: 09/07/16 13:06> Date of Encounter: 09/07/16 Time of Encounter: 10:16 - Assessment and plan (1) Fall Current Visit: Yes Status: Acute Assessment and plan: Patient was found down outside at home, unclear if fell or if fell asleep outside. CT significant for thoracic compression fractures which appear to be old, patient has no pain on palpation of thoracic spine. Social work consult, APS report filed and investigation underway. Plan to outfit doors with alarms, application given o niece for Medicaid to enable patient to access more services. Plans for placement ion ECF facility to enable patient to qualify for Medicaid prior to going home PT and OT evaluation with recommendation of placement in extended care facility , do not believe patient would benefit from skilled placement as she is unable to follow one step commands. Due to APS involvement and current lack of safe discharge plan, patient will remain hospitalized until a safe discharge plan can be determined. Qualifiers: Encounter type: subsequent encounter Qualified Code(s): W19.XXXD - Unspecified fall, subsequent encounter (2) Dementia Current Visit: Yes Status: Chronic Assessment and plan: Chronic Patient only oriented to self. Social work consulted, APS investigation initiated. As per prior, plan to outfit home doors with alarms and niece given application for patient for Medicaid. Per review, plans to transfer patient to ECF to enable qualification for Medicaid as well as enable more proper arrangements at home. Social work awaiting discussion with sister and niece with patient. As previously mentioned, PT and OT recommend [facility] ECF placement with 24 hour supervision for patient safety, do not believe patient would be a candidate for skilled rehab due to inability to follow one step commands. Patient will remain in hospital until a safe discharge plan can be determined. Qualifiers: Dementia type: unspecified type Dementia behavioral disturbance: without behavioral disturbance Qualified Code(s): F03.90 - Unspecified dementia without behavioral disturbance (3) Rhabdomyolysis Current Visit: Yes Status: Acute Assessment and plan: Improving. Mild rhabodomyolysis, likely secondary from being immobile for unknown amount of time prior to arrival. CK on admission 540 -> 788 -> 387 to 240 this morning. Patient has received bicarb during this hospital stay. Patient has pulled out two IVs, no IV fluids running currently. Patient is taking in oral intake by mouth. Qualifiers: Rhabdomyolysis type: non-traumatic Qualified Code(s): M62.82 - Rhabdomyolysis (4) Malnutrition Current Visit: Yes Status: Chronic Assessment and plan: Patient has albumin of 2.6 Per report, patient only ate sandwich at lunch and milk for dinner prior to admission. Per record review, patient weight on admission was 58.967 kg, weight today was 55.8kg representing a 3 kg loss. Would consider KO tube with feeds, however given patient's underlying dementia and pulling out of peripheral IV accesses overnight, would be concerned that patient would pull out KO tube for feeding. Discussion with family, they feel that if patient was transferred to ECF that she would more than likely not continue to eat as niece at bedside states patient keeps telling her she has food at home. Concerns exist that patient would not eat at ECF then be transferred back to hospital for admission. Discussion held with family over possible PEG tube, niece who is in room states that she would be on board. Alerted criminal justice social worker who is going to contact hospital staff and determine hw to proceed since patient does not have medical power of title attorney of legal guardian. - Subjective Interval history: Patient seen and examined. Due to patient's mental status, information for note was gathered from chart review. Per review of social work note, the criminal justice social worker did file an APS report, see social work note for further details. APS investigation ongoing and update, plan to place alarms on doors. Per social work note, patient will be placed in ECF to qualify for Medicaid and then be transferred back home. Social work has attempted to contact sister and niece to come in and discuss with patient need for placement. Previous evaluation by PT and OT with recommendation for placement in facility with 24 hour supervision, as they feel patient would not be a skilled rehab candidate as she is unable to follow one step commands. Patient continues to refuse to eat anything while in hospital. Per report she informed staff that she woudl not eat anything until she went home. Patient pulled out two IV lines overnight. Patient this morning believes her sister is here and was admitted the same time as her and will be coming to get her today. Patient herself has no complaints this morning. - Constitutional Vitals: Temp Pulse Resp BP Pulse Ox 99.2 F 106 16 148/75 95 09/07/16 07:44 09/07/16 07:44 09/07/16 07:44 09/07/16 07:44 09/07/16 07:44 General appearance: Present: cooperative, A&O X 1 (oriented to self only ), no acute distress - Head Head exam: Present: atraumatic, normocephalic - Eye Eye exam: Present: normal appearance. Absent: conjunctival injection - ENT ENT exam: Present: mucous membranes moist, normal external ear exam Additional comments: tooth protruding from left side of mouth just lateral to midline - Neck Neck exam general surgery: Present: supple, trachea midline - Respiratory Respiratory exam: Present: CTAB. Absent: rales, rhonchi, stridor, wheezes - Cardiovascular Cardiovascular exam: Present: +S1, +S2, tachycardia. Absent: clicks, diastolic murmur, gallop, rubs, systolic murmur - GI/Abdominal GI/Abdominal exam: Present: normal bowel sounds, soft. Absent: distended, guarding, rebound, tenderness - Extremities Exam Extremities exam: Present: normal capillary refill. Absent: pedal edema Internal Medicine: Result - Labs CBC & Chem 7: 09/06/16 06:48 09/07/16 06:12 Labs: BMP 09/07/16 06:12 Sodium 139 Potassium 3.4 L Chloride 107 Carbon Dioxide 18 L BUN 9 Creatinine 0.69 Glucose 87 Calcium 8.3 L - ABG Interpretation ABG results: PT/INR, D-dimer PT 15.0 Seconds (9.4-12.1) H 09/02/16 08:34 Consult Discharge Plan - Plan Referrals: NO,PCP [Primary Care Provider] - (patient will go likely to ecf) <Abhishek Hauser - Last Filed: 09/07/16 14:32> - Assessment and plan (1) Weight loss Current Visit: Yes Status: Acute Assessment and plan: Due to poor PO intake. (2) Hypovolemia dehydration Current Visit: Yes Status: Acute Assessment and plan: Pt refuses to keep IV in and will not take much PO. Family would be amenable to PEG tube for patient. SW exploring consent issues at this time. (3) Malnutrition Current Visit: Yes Status: Chronic (4) Regular sinus tachycardia Current Visit: Yes Status: Acute Assessment and plan: Due to hypovolemia (5) Rhabdomyolysis Current Visit: Yes Status: Resolved Qualifiers: Rhabdomyolysis type: non-traumatic Qualified Code(s): M62.82 - Rhabdomyolysis (6) Fall Current Visit: Yes Status: Acute Qualifiers: Encounter type: subsequent encounter Qualified Code(s): W19.XXXD - Unspecified fall, subsequent encounter (7) Dementia Current Visit: Yes Status: Chronic Qualifiers: Dementia type: unspecified type Dementia behavioral disturbance: without behavioral disturbance Qualified Code(s): F03.90 - Unspecified dementia without behavioral disturbance (8) Hypokalemia Current Visit: Yes Status: Acute - Constitutional Vitals: Temp Pulse Resp BP Pulse Ox 99.5 F 114 16 133/75 97 09/07/16 10:25 09/07/16 10:25 09/07/16 10:25 09/07/16 10:25 09/07/16 10:25 Internal Medicine: Result - Labs CBC & Chem 7: 09/06/16 06:48 09/07/16 06:12 Labs: BMP 09/07/16 06:12 Sodium 139 Potassium 3.4 L Chloride 107 Carbon Dioxide 18 L BUN 9 Creatinine 0.69 Glucose 87 Calcium 8.3 L - ABG Interpretation ABG results: PT/INR, D-dimer PT 15.0 Seconds (9.4-12.1) H 09/02/16 08:34 - Attending Attestation I examined this patient and my medical decision-making was reviewed with the Resident Physician on 09/06/16. I agree with the documented findings, disposition and treatment plan as described except to the extent set forth below. Ms. Stokes is currently admitted mild acute rhabdomyolysis. She has lost weight because she has not been eating here nor drinking much. She is high risk due to overall decline and risk for worsening medical status. Ms. Stokes denies complaints. She denies pain. Refuses to eat here in the hospital (even when her sister is here). Exam Alert. Comfortable Significant halitosis. Heart reg No wheeze I/P 1. Weight loss - has occurred in hospital. Pt refuses to eat or drink much "until I go home." She is going to SNF prior to discharge. Discussing options with family - pt will pull out NG, pulls out her IV lines. ? PEG - family prefers this option. 2. Add chlorhexadine mouthwash Further diagnoses and plan as above.
[2016-09-07] MEDS ORDERED: 0.9 % Sodium Chloride 1,000 ML IVC SCH (11:15)
[2016-09-07] MEDS: 0.9 % Sodium Chloride 1,000 ML IVC SCH (13:58)
--- NOTE | 2016-09-07 19:17 | General Surgery Consult Note ---
Date of Encounter: 09/07/16 Time of Encounter: 04:40 Assessment and Plan (1) Weight loss Current Visit: Yes Status: Acute Have an opportunity to evaluate this patient and after discussing with the patient who does not at this time with any type of surgical procedure (and I feel that she is at least minimally competent at this time) and discussing this with the hospital staff who states that she has refused certain types of IVs and has removed/pulled IVs I think it would not be appropriate to place a feeding tube in her for fear of removal of the feeding tube which will cause intra-abdominal spillage of gastric contents and sepsis. She does occasionally become confused there is still a very high likelihood of her spontaneously pulling out the feeding tube. I also would not recommend a nasogastric feeding tube for fear of her removing this as well (given her current somewhat lucid state). All efforts should be expanded at encourage her to eat orally. I discussed this with the patient and the hospital staff and they verbalized understanding. History of Present Illness Consult date: 09/07/16 History of present illness: The patient is an 81 year old a past medical history significant for dementia who presented to [facility] with hypothermia. He was found outside and was confused and brought to the hospital for further evaluation. Will stay the patient has had a noted decrease in weight and has refused to eat. She is not sedated or had any abdominal pain symptoms that she apparently lives with her sister. Per the hospital documentation and discussion with the hospital staff she has episodes of confusion and pulled out IVs and refuses PICC line placement. She has had calorie counts showing decreased input and I have been asked to evaluate the patient for the possibility of placing a feeding tube. The patient denies any abdominal pain currently and denies any previous history of abdominal surgery. Overall her medical history is sparse but at this time the patient is appropriate and able to tell me whether she is having any discomfort. She is also adamant that she does not want any type of surgical procedure or feeding tube placement at this time. Past Med Surg Social Fam HX - Past Medical History Medical history: dementia (possible) - Past Surgical History Surgical History: other (None given) - Social History Smoking Status: Never smoker Smokeless Tobacco Status: No Alcohol use: none Drug use: none Medications and Allergies No Known Home Drugs 09/02/16 [History] Allergies No Known Allergies Allergy (Verified 09/02/16 08:21) Review of Systems All systems PM: reviewed and no additional remarkable complaints except as stated All systems PM: A 10-system review of systems was performed and is negative for pertinent findings except as documented above in the HPI. General Surgery Exam Initial Vital Signs Temp Pulse Resp BP Pulse Ox 91.1 F L 97 18 140/94 98 09/02/16 08:17 09/02/16 08:17 09/02/16 08:17 09/02/16 08:17 09/02/16 08:17 - General physical appearance well developed, no distress - Eyes PERRL, normal ocular movement - Respiratory normal expansion, normal respiratory effort - Cardiovascular Cardiovascular exam: Present: RRR, no murmurs/rubs/gallops - Abdomen Abdomen general surgery: Present: bowel sounds present, soft, non tender - Neurologic Present: CN 2-12 grossly intact - Musculoskeletal Present: other (No clubbing cyanosis, or edema) Exam Initial Vital Signs Temp Pulse Resp BP Pulse Ox 91.1 F L 97 18 140/94 98 09/02/16 08:17 09/02/16 08:17 09/02/16 08:17 09/02/16 08:17 09/02/16 08:17 Results - Labs 09/06/16 06:48 09/07/16 06:12 Abnormal lab results MCH 27.1 pg (28.0-33.3) L 09/06/16 06:48 PT 15.0 Seconds (9.4-12.1) H 09/02/16 08:34 Potassium 3.4 mEq/L (3.5-4.5) L 09/07/16 06:12 Carbon Dioxide 18 mEq/L (19-29) L 09/07/16 06:12 Calcium 8.3 mg/dL (8.6-10.8) L 09/07/16 06:12 Phosphorus 2.1 mg/dL (2.3-4.7) L 09/02/16 13:59 Creatine Kinase 240 Units/L (29-168) H 09/07/16 06:12 Albumin 2.6 g/dL (3.5-5.0) L 09/06/16 06:48 Albumin/Globulin Ratio 0.8 (1.1-2.2) L 09/06/16 06:48 Urine Ketones 15 mg/dL (Negative) H 09/02/16 09:30 Urine Blood Small (Negative) H 09/02/16 09:30 Urine Bilirubin Small (Negative) H 09/02/16 09:30 Ur Squamous Epith Cells Moderate per lpf (None-Few) H 09/02/16 09:30 Diabetes panel 09/07/16 Range/Units 06:12 Sodium 139 (136-145) mEq/L Potassium 3.4 L (3.5-4.5) mEq/L Chloride 107 (98-109) mEq/L Carbon Dioxide 18 L (19-29) mEq/L BUN 9 (7-20) mg/dL Creatinine 0.69 (0.57-1.11) mg/dL Glucose 87 (70-99) mg/dL Calcium 8.3 L (8.6-10.8) mg/dL Calcium panel 09/07/16 Range/Units 06:12 Calcium 8.3 L (8.6-10.8) mg/dL Pituitary panel 09/07/16 Range/Units 06:12 Sodium 139 (136-145) mEq/L Potassium 3.4 L (3.5-4.5) mEq/L Chloride 107 (98-109) mEq/L Carbon Dioxide 18 L (19-29) mEq/L BUN 9 (7-20) mg/dL Creatinine 0.69 (0.57-1.11) mg/dL Glucose 87 (70-99) mg/dL Calcium 8.3 L (8.6-10.8) mg/dL Adrenal panel 09/07/16 Range/Units 06:12 Sodium 139 (136-145) mEq/L Potassium 3.4 L (3.5-4.5) mEq/L Chloride 107 (98-109) mEq/L Carbon Dioxide 18 L (19-29) mEq/L BUN 9 (7-20) mg/dL Creatinine 0.69 (0.57-1.11) mg/dL Glucose 87 (70-99) mg/dL Calcium 8.3 L (8.6-10.8) mg/dL All other labs normal. Consult Discharge Plan - Plan Referrals: NO,PCP [Primary Care Provider] - (patient will go likely to ecf)
[2016-09-08] MEDS: *HR* Enoxaparin 40 MG/0.4 ML SYRINGE SQ SCH (05:10)
--- NOTE | 2016-09-08 09:27 | Internal Med Progress Note ---
<Sara Mcnulty - Last Filed: 09/08/16 09:18> Date of Encounter: 09/08/16 Time of Encounter: 09:18 - Assessment and plan (1) Fall Current Visit: Yes Status: Acute Assessment and plan: Patient was found down outside at home, unclear if fell or if fell asleep outside. CT significant for thoracic compression fractures which appear to be old, patient has no pain on palpation of thoracic spine. Social work consult, APS report filed and investigation underway. Plan to outfit doors with alarms, application given to niece for Medicaid to enable patient to access more services. Plans for placement in ECF facility to enable patient to qualify for Medicaid prior to going home. Patients family has requested placement in [facility]. PT and OT evaluation with recommendation of placement in extended care facility , do not believe patient would benefit from skilled placement as she is unable to follow one step commands. Due to APS involvement and current lack of safe discharge plan, patient will remain hospitalized until a safe discharge plan can be determined. Plan to transfer patient to [facility] per family request for rehab prior to going home. Qualifiers: Encounter type: subsequent encounter Qualified Code(s): W19.XXXD - Unspecified fall, subsequent encounter (2) Dementia Current Visit: Yes Status: Chronic Assessment and plan: Chronic Patient only oriented to self. Social work consulted, APS investigation initiated. As per prior, plan to outfit home doors with alarms and niece given application for patient for Medicaid. Per review, plans to transfer patient to [facility] to enable qualification for Medicaid as well as enable more proper arrangements at home. Patient family requesting placement at [facility] prior to coming home. Patient has bed waiting. As previously mentioned, PT and OT recommend custodial ECF placement with 24 hour supervision for patient safety, do not believe patient would be a candidate for skilled rehab due to inability to follow one step commands. Patient will remain in hospital until a safe discharge plan can be determined. Plan to discharge to [facility] upon informing family of plan. Qualifiers: Dementia type: unspecified type Dementia behavioral disturbance: without behavioral disturbance Qualified Code(s): F03.90 - Unspecified dementia without behavioral disturbance (3) Rhabdomyolysis Current Visit: Yes Status: Resolved Assessment and plan: Improving. Mild rhabodomyolysis, likely secondary from being immobile for unknown amount of time prior to arrival. CK on admission 540 -> 788 -> 387 to 240 this morning. Patient has received bicarb during this hospital stay. Unable to maintain IV access due to patient pulling out IVs. Patient is taking in minimal oral intake by mouth. Qualifiers: Rhabdomyolysis type: non-traumatic Qualified Code(s): M62.82 - Rhabdomyolysis (4) Malnutrition Current Visit: Yes Status: Chronic Assessment and plan: Patient has albumin of 2.6 Per report, patient only ate sandwich at lunch and milk for dinner prior to admission. Per record review, patient weight on admission was 58.967 kg, weight today was 55.4 kg representing a > 3 kg loss. Would consider KO tube with feeds, patient denied any eeding tube to surgeon, Surgery also feels that patient would be high risk to pull tube. Surgery consulted for consideration of PEG tube, appreciate expertise and assistance. Feel that patient would not be a good candidate due to high risk of pulling PEG tube out leading to an acute abdomen. Per note, discussion held with patient and she denied placement of feeding tube. Patient will continue to be encouraged to eat by mouth. Informed family they could bring favorite foods from home for patient to eat. Will update family on surgery's recommendations. Plan to transfer to [facility] pending family update. - Subjective Interval history: Patient seen and examined. Due to patient's mental status, information for note was gathered from chart review. Per review of social work note, the social service assistant did file an APS report, see social work note for further details. APS investigation ongoing and update, plan to place alarms on doors. Per social work note, patient will be placed in ECF to qualify for Medicaid and then be transferred back home. Social work discussed placement with sister and niece yesterday, they would prefer to have her placed at [facility] as that is close to patient's home. Patient has been accepted at [facility]. Previous evaluation by PT and OT with recommendation for placement in facility with 24 hour supervision, as they feel patient would not be a skilled rehab candidate as she is unable to follow one step commands. Patient continues to refuse to eat anything while in hospital. Per report she informed staff that she would not eat anything until she went home. Surgery was consulted yesterday for consideration of PEG tube per family request, surgery did not feel as if patient was a good candidate for PEG tube due to high risk of her pulling it out, and at time of discussion patient was answering questions appropriately and denied consent for PEG tube. Patient herself has no complaints this morning. - Constitutional Vitals: Temp Pulse Resp BP Pulse Ox 98.1 F 101 16 131/71 97 09/08/16 07:06 09/08/16 07:06 09/08/16 07:06 09/08/16 07:06 09/08/16 07:06 General appearance: Present: cooperative, A&O X 1 (oriented to self only ), no acute distress - Head Head exam: Present: atraumatic, normocephalic - Eye Eye exam: Present: normal appearance. Absent: conjunctival injection - ENT ENT exam: Present: mucous membranes moist, normal external ear exam Additional comments: protruding tooth from left lateral side of mouth just lateral to midline - Neck Neck exam general surgery: Present: supple, trachea midline - Respiratory Respiratory exam: Present: CTAB. Absent: decreased breath sounds, rhonchi, stridor, wheezes - Cardiovascular Cardiovascular exam: Present: +S1, +S2, tachycardia. Absent: clicks, diastolic murmur, gallop, rubs, systolic murmur - GI/Abdominal GI/Abdominal exam: Present: normal bowel sounds, soft. Absent: distended, guarding, rebound, tenderness - Extremities Exam Extremities exam: Present: normal capillary refill. Absent: pedal edema Internal Medicine: Result - Labs CBC & Chem 7: 09/06/16 06:48 09/07/16 06:12 - ABG Interpretation ABG results: PT/INR, D-dimer PT 15.0 Seconds (9.4-12.1) H 09/02/16 08:34 Consult Discharge Plan - Plan Referrals: NO,PCP [Primary Care Provider] - (patient will go likely to ecf) <Abhishek Hauser - Last Filed: 09/08/16 12:58> - Assessment and plan (1) Hypovolemia dehydration Current Visit: Yes Status: Acute (2) Rhabdomyolysis Current Visit: Yes Status: Resolved Qualifiers: Rhabdomyolysis type: non-traumatic Qualified Code(s): M62.82 - Rhabdomyolysis (3) Malnutrition Current Visit: Yes Status: Chronic (4) Weight loss Current Visit: Yes Status: Acute (5) Regular sinus tachycardia Current Visit: Yes Status: Resolved (6) Fall Current Visit: Yes Status: Acute Qualifiers: Encounter type: subsequent encounter Qualified Code(s): W19.XXXD - Unspecified fall, subsequent encounter (7) Dementia Current Visit: Yes Status: Chronic Qualifiers: Dementia type: unspecified type Dementia behavioral disturbance: without behavioral disturbance Qualified Code(s): F03.90 - Unspecified dementia without behavioral disturbance (8) Hypokalemia Current Visit: Yes Status: Acute - Constitutional Vitals: Temp Pulse Resp BP Pulse Ox 98.3 F 103 18 145/75 98 09/08/16 11:05 09/08/16 11:05 09/08/16 11:05 09/08/16 11:05 09/08/16 11:05 Internal Medicine: Result - Labs CBC & Chem 7: 09/06/16 06:48 09/07/16 06:12 - ABG Interpretation ABG results: PT/INR, D-dimer PT 15.0 Seconds (9.4-12.1) H 09/02/16 08:34 - Attending Attestation Please see discharge summary of this date.
[2016-09-08 11:06] VITALS: BP 145/75
--- NOTE | 2016-09-08 12:49 | Discharge Summary ---
Date of Encounter: 09/08/16 Time of Encounter: 12:41 - Discharge Diagnosis (1) Hypovolemia dehydration Priority: Primary Status: Acute (2) Rhabdomyolysis Priority: Primary Status: Resolved Qualifiers: Rhabdomyolysis type: non-traumatic Qualified Code(s): M62.82 - Rhabdomyolysis (3) Malnutrition Priority: Primary Status: Chronic (4) Weight loss Priority: Secondary Status: Acute (5) Regular sinus tachycardia Priority: Secondary Status: Acute (6) Fall Priority: Secondary Status: Acute Qualifiers: Encounter type: subsequent encounter Qualified Code(s): W19.XXXD - Unspecified fall, subsequent encounter (7) Dementia Priority: Secondary Status: Chronic Qualifiers: Dementia type: unspecified type Dementia behavioral disturbance: without behavioral disturbance Qualified Code(s): F03.90 - Unspecified dementia without behavioral disturbance (8) Hypokalemia Priority: Secondary Status: Acute - Discharge Medications Home Medications: RX: Acetaminophen [Tylenol] 650 mg PO Q6HR PRN #0 tablet 09/08/16 [Rx] Allergies/Adverse Reactions: Allergies No Known Allergies Allergy (Verified 09/02/16 08:21) - Notes to Outpatient Provider Pt has very poor PO intake. Refuses most foods. Date of admission: 09/05/16 08:13 Primary care physician: PCP NO Consults: 09/07/16 15:02 Consult to Surgery [CONS] Routine Consulting Provider: Adam De La Rosa Reason for Consult: patient with 3 kg weight loss, refusing food, evaluation for possible PEG tube. Call Completed: Yes Discharging clinician: Abhishek Hauser Anticipated date of discharge: 09/08/16 - Patient Status Disposition: Transfer SNF Condition: Fair Functional capacity at discharge: independent ambulation Overall status at discharge: patient is progressing back to baseline - Discharge Instructions Follow Up With: NO,PCP [Primary Care Provider] - (patient will go likely to ecf) Forms: ED Satisfaction Letter - Diet and Activity Activity: as per physical therapy Diet: other, regular diet (Soft foods.) Hospital course: Ms. Stokes is a 81 year old female with no reported medical history brought to ED after being found outside. She was hypothermic on arrival to ED. She was evaluated and admitted for further evaluation and treatment. Ms. Stokes was placed in observation. She was rewarmed without difficulty. She was placed on IV fluids due to mildly elevated CPD and creatinine. She had slow improvement in her CPK and renal function normalized. She removed every IV placed so fluids were discontinued. She was seen by social work due to concern about home situation. APS was called and ultimately is going to help with safety measures in the house. Arrangements have been made for SNF placement pending Medicaid approval and ability to place things in house. Ms. Kike dillon won't eat. She will occasionally drink milk or pudding. We consulted surgery for possible PEG but pt coherently refused and is at risk for it to be pulled out. Sister and niece are aware of situation. '' On 09/08 she is afebrile with stable vitals. - Time Spent with Patient Total time spent providing and/or coordinating discharge services: 44min - Constitutional Vitals: Temp Pulse Resp BP Pulse Ox 98.3 F 103 18 145/75 98 09/08/16 11:05 09/08/16 11:05 09/08/16 11:05 09/08/16 11:05 09/08/16 11:05 General appearance: Present: cooperative, A&O X 1 (oriented to self only ), no acute distress - Head Head exam: Present: normocephalic - Eye Eye exam: Present: EOMI, conjuntiva pink - ENT ENT exam: Present: mucous membranes dry Additional comments: Poor dentition. - Respiratory Respiratory exam: Present: decreased breath sounds, CTAB - Cardiovascular Cardiovascular exam: Present: RRR. Absent: tachycardia - GI/Abdominal GI/Abdominal exam: Present: soft. Absent: tenderness - Extremities Exam Extremities exam: Present: warm - Neurological Exam Neurological exam: Present: alert, no focal deficits - Skin Skin exam: Present: warm. Absent: rash
--- NOTE | 2016-09-08 12:55 | Physician Discharge Referral ---
ExtendedCare Referral Info Transfer To: [facility] Provider in Charge: Abhishek Hauser DO Provider in Charge after Transfer: PCP Institutional Level of Care: Skilled - Diagnosis (1) Hypovolemia dehydration Priority: Primary Status: Acute (2) Rhabdomyolysis Priority: Primary Status: Resolved (3) Malnutrition Priority: Secondary Status: Chronic (4) Weight loss Priority: Secondary Status: Acute (5) Regular sinus tachycardia Priority: Secondary Status: Resolved (6) Fall Priority: Secondary Status: Acute (7) Dementia Priority: Secondary Status: Chronic (8) Hypokalemia Priority: Secondary Status: Acute Expected Duration of Placement: Less than 30 days Prognosis: Fair Aware of Diagnosis: Family Aware of Prognosis: Family - Transfer Medications Home Medications: Acetaminophen [Tylenol] 650 mg PO Q6HR PRN #0 tablet 09/08/16 [Rx] Allergies/Adverse Reactions: Allergies No Known Allergies Allergy (Verified 09/02/16 08:21) - Respiratory Orders Oxygen / L per min, None Smoking Cessation: Smoking cessation has been advised. For more information, call the [place] Tobacco Quit Line at 6-709-FNQL-NOW. - Lab Orders Lab Orders: 2 Step Mantoux Test per State regulation - Ancillary Orders May use pressure relief devices daily prn, May consult with Dentist, Service Loss Control Consultant, Treer PRN (Very poor dentition. Needs dental evaluation.) - Advance Directives Code Status: Full Code - History and Physical History/Physical reviewed & approved w/add comments: No significant change. - Mobility Orders Ambulate - Rehabiliation Orders Rehab Potential: Fair Rehab Orders: Evaluation for Physical Therapy, Evaluation for Occupational Therapy, Evaluation for Speech Therapy - Treatments Skin tear care topically daily PRN per policy, May check for fecal impaction rectally daily PRN, Fleet enema rectally every other day PRN cleansing purposes - Diet Orders Regular, Mechanical Soft CERTIFICATION: I certify that the transfer of the above named patient to an Extended Care Facility is necessary for the continuing treatment of the diagnosis listed. The above information is true and accurate reflection of patient's current condition. Confidential - Redisclosure prohibited without a patient's written consent.
== END 2016-09-08 14:22 | DRG 558 ==
LOC: EMEROO 08:16 → INTOOBSV 11:01 → ICNU 11:01 → 2ANU 12:03
PROVIDERS: ADMIT Internal Medicine; ATTEND Internal Medicine